=== PATIENT | female | born 1985 | race Caucasian/White ===

== ENCOUNTER 2016-04-22 17:24 | Emergency (ER) | payer OTHER | END 2016-04-22 20:31 | disposition home or self-care (01) | LOC: ER1 17:24 | DX: S39.012A Strain of muscle, fascia and tendon of lower back, initial encounter (principal); F17.210 Nicotine dependence, cigarettes, uncomplicated; Z88.2 Allergy status to sulfonamides; Z88.8 Allergy status to other drugs, medicaments and biological substances; X58.XXXA Exposure to other specified factors, initial encounter | CPT/HCPCS: 96372; 99283; J1100; J1885 ==

== ENCOUNTER 2020-11-17 12:19 | Emergency (ER) | payer OTHER ==
[~2020-11-17 12:19] MED LIST: IBUPROFEN600 MG PO; NORCO 5-325 TA1 EACH PO; PERCOCET 5-3251 EACH PO
== END 2020-11-17 13:40 | disposition home or self-care (01) ==
LOC: ER1 12:19
DX: F19.10 Other psychoactive substance abuse, uncomplicated (principal); F17.210 Nicotine dependence, cigarettes, uncomplicated; Z23 Encounter for immunization
CPT/HCPCS: 73130; 90471; 90715; 99283